=== PATIENT | male | born 1965 | race Caucasian/White ===

== ENCOUNTER 2016-10-31 18:46 | Emergency (ER) | payer OTHER ==
[~2016-10-31] VITALS: Ht 175.3 cm; Wt 125.8 kg
[2016-10-31 18:52] VITALS: TEMP 36.8; Ht 175.3 cm; Wt 125.8 kg
[2016-10-31] MEDS ORDERED: SODIUM CHLORIDE 0.9% 1000ML 1,000 ML IV STA (19:18)
--- NOTE | 2016-10-31 19:26 | EMERGENCY ROOM VISIT NOTE ---
History Report prepared by Lisa: Yesica Kitchen Under the Supervision of: Dr. Glory Dickey M.D. First contact with patient: 18:57 Chief Complaint: ABDOMINAL PAIN Stated Complaint: LOWER ABDOMINAL PAIN,CT/LABS CONFIRMED APPENDICITI Nursing Triage Summary: patient reports evaluation at [facility] for lower quadrant abdominal pain and lab work/ct showed acute appy, patient refused treatment at that facility, states "they didnt sent me here, I just didnt want to stay there." History of Present Illness The patient is a 51 year old male who presents to the Emergency Room with complaints of worsening abdominal pain for the past 3 days. His pain started gradually and he says he felt "gassy." Yesterday his pain became worse. Today he went to his PCP and had blood work and an outpatient CT scan at [facility]. He was called this evening and told that he had acute appendicitis. He was advised to return to the hospital. The patient came to [facility] instead. He is complaining of pain in the RLQ. He rates his pain as a 3/10 in severity. The patient denies fevers, nausea, vomiting, diarrhea, and urinary symptoms. Source of History: patient Onset: 3 days ago Position: abdomen (RLQ) Symptom Intensity: 3/10 Quality: other (gassy) Timing: worsening Associated Symptoms: No diarrhea, No fevers, No nausea, No urinary symptoms , No vomiting Review of Systems See HPI for pertinent positives & negatives. A total of 10 systems reviewed and were otherwise negative. Past Medical & Surgical Medical Problems: (1) No significant active problems Family History No pertinent history stated. Social History Smoking Status: Never Smoker Marital Status: Housing Status: lives with family Current/Historical Medications No Active Prescriptions or Reported Meds Allergies Coded Allergies: No Known Allergies (Unverified , 10/31/16) Physical Exam Vital Signs Date Time Temp Pulse Resp B/P Pulse Ox O2 Delivery O2 Flow Rate FiO2 10/31/16 20:50 71 20 116/61 100 Room Air 10/31/16 20:37 69 10/31/16 18:52 36.8 83 18 150/95 96 Room Air Physical Exam Vital signs reviewed. General: Well-appearing 51 year old male, in no significant distress. HEENT: No scleral icterus, PERRLA, neck supple. Atraumatic. Cardiovascular: Regular rate and rhythm, no extra sounds. Pulmonary: Clear to auscultation bilaterally, normal work of breathing. Abdomen: Soft, mild lower abdominal tenderness, no rebound or guarding, nondistended, positive bowel sounds. Musculoskeletal: Atraumatic, no peripheral edema. Neurologic: Patient awake alert and oriented x 3, full strength in all 4 extremities. Cranial nerves 2 through 12 grossly intact. Skin: Warm, dry, no rash Medical Decision & Procedures ER Provider Diagnostic Interpretation: Radiology results as stated below per my review and radiologist interpretation: CHEST ONE VIEW PORTABLE CLINICAL HISTORY: appy COMPARISON STUDY: No previous studies for comparison. FINDINGS: The bones soft tissues and hemidiaphragms are normal. The cardiomediastinal silhouette is normal. The lungs are clear. The pulmonary vasculature is normal. IMPRESSION: Negative chest. Electronically signed by: Nic Baron M.D. 10/31/2016 8:01 PM Dictated Date/Time: 10/31/2016 8:00 PM Laboratory Results 10/31/16 20:08 Red Blood Count 4.69, Mean Corpuscular Volume 90.4, Mean Corpuscular Hemoglobin 32.4, Mean Corpuscular Hemoglobin Concent 35.8, Mean Platelet Volume 10.0, Neutrophils (%) (Auto) 56.8, Lymphocytes (%) (Auto) 31.2, Monocytes (%) (Auto) 9.8, Eosinophils (%) (Auto) 1.7, Basophils (%) (Auto) 0.4, Neutrophils # (Auto) 4.42, Lymphocytes # (Auto) 2.43, Monocytes # (Auto) 0.76, Eosinophils # (Auto) 0.13, Basophils # (Auto) 0.03 10/31/16 20:08 Test 10/31/16 20:08 White Blood Count 7.78 K/uL (4.8-10.8) Red Blood Count 4.69 M/uL (4.7-6.1) Hemoglobin 15.2 g/dL (14.0-18.0) Hematocrit 42.4 % (42-52) Mean Corpuscular Volume 90.4 fL (80-100) Mean Corpuscular Hemoglobin 32.4 pg (25-34) Mean Corpuscular Hemoglobin Concent 35.8 g/dl (32-36) Platelet Count 257 K/uL (130-400) Mean Platelet Volume 10.0 fL (7.4-10.4) Neutrophils (%) (Auto) 56.8 % Lymphocytes (%) (Auto) 31.2 % Monocytes (%) (Auto) 9.8 % Eosinophils (%) (Auto) 1.7 % Basophils (%) (Auto) 0.4 % Neutrophils # (Auto) 4.42 K/uL (1.4-6.5) Lymphocytes # (Auto) 2.43 K/uL (1.2-3.4) Monocytes # (Auto) 0.76 K/uL (0.11-0.59) Eosinophils # (Auto) 0.13 K/uL (0-0.5) Basophils # (Auto) 0.03 K/uL (0-0.2) RDW Standard Deviation 42.5 fL (36.4-46.3) RDW Coefficient of Variation 13.0 % (11.5-14.5) Immature Granulocyte % (Auto) 0.1 % Immature Granulocyte # (Auto) 0.01 K/uL (0.00-0.02) Anion Gap 6.0 mmol/L (3-11) Est Creatinine Clear Calc Drug Dose 136.3 ml/min Estimated GFR () 118.0 Estimated GFR (Non- 101.8 BUN/Creatinine Ratio 11.6 (10-20) Calcium Level 8.8 mg/dl (8.5-10.1) Total Bilirubin 0.6 mg/dl (0.2-1) Direct Bilirubin 0.1 mg/dl (0-0.2) Aspartate Amino Transf (AST/SGOT) 16 U/L (15-37) Alanine Aminotransferase (ALT/SGPT) 40 U/L (12-78) Alkaline Phosphatase 72 U/L (45-117) Total Protein 7.2 gm/dl (6.4-8.2) Albumin 3.6 gm/dl (3.4-5.0) Laboratory results per my review. Medications Administered Medications (Trade) Dose Ordered Sig/Remedios Route Start Time Stop Time Status Last Admin Dose Admin Sodium Chloride (Nss 1000ml) 1,000 ml @ 200 mls/hr Q5H STAT IV 10/31/16 19:18 10/31/16 21:43 DC 10/31/16 19:43 200 MLS/HR ED Course 1857: Past medical records reviewed. The patient was evaluated in room B12B. A complete history and physical examination was performed. 1917: NSS 1000 ml @ 200 mls/hr IV 2049: I reassessed the patient at this time. He is feeling better and resting comfortably. The patient's CT results from earlier today were obtained. I discussed the results and treatment plan with the patient. I answered all pertaining questions that he had. He expressed understanding and verbalized agreement. The patient will be discharged home. Medical Decision Differential diagnosis: Etiologies such as appendicitis, diverticulitis, PUD, biliary pathology, UTI, pancreatitis, obstruction, mesenteric ischemia, aortic pathology, infections, inflammatory bowel disease, renal colic, as well as others were entertained. This patient was evaluated and appeared to be in no significant distress. Physical examination reveals mild lower abdominal tenderness. CT scan results were reviewed from the outside facility. The radiologist has read the scan as an epiploic appendagitis. CT scan has positively identify the appendix and states it is normal. Patient's laboratory work reveals a normal white blood cell count. He and his family were informed of the findings. He was given IV Toradol and was feeling improved after IV hydration. He was discharged with instructions to use ibuprofen as needed for pain. He will follow-up with his physician this week for reevaluation and return to the ER for worsening of symptoms or any medical concerns. Impression Primary Impression: Epiploic appendagitis Scribe Attestation The scribe's documentation has been prepared under my direction and personally reviewed by me in its entirety. I confirm that the note above accurately reflects all work, treatment, procedures, and medical decision making performed by me. Departure Information Dispostion Home / Self-Care Prescriptions No Active Prescriptions or Reported Meds Referrals Iban Ventura D.O. (PCP) Forms Call Back Authorization, HOME CARE DOCUMENTATION FORM, IMPORTANT VISIT INFORMATION Patient Instructions My [facility] Additional Instructions Diagnosis: Epiploic appendagitis Ibuprofen 600 mg every 6 hours as needed for pain with food. Drink plenty of clear fluids. Follow-up with your physician in one to 2 days for reevaluation Return to the emergency department for worsening of symptoms or any medical concerns.
--- NOTE | 2016-10-31 20:02 | DIAGNOSTIC IMAGING REPORT ---
CHEST ONE VIEW PORTABLE CLINICAL HISTORY: appy COMPARISON STUDY: No previous studies for comparison. FINDINGS: The bones soft tissues and hemidiaphragms are normal. The cardiomediastinal silhouette is normal. The lungs are clear. The pulmonary vasculature is normal. IMPRESSION: Negative chest. Electronically signed by: Nic Baron M.D. 10/31/2016 8:01 PM Dictated Date/Time: 10/31/2016 8:00 PM
[2016-10-31 20:22] LABS: BASO % 0.4 %; BASO ABS # 0.03 K/uL (0-0.2); COMPLETE YES; EOS % 1.7 %; HEMATOCRIT 42.4 % (42-52); IG% 0.1 %; LYMPH % 31.2 %; LYMPH ABS # 2.43 K/uL (1.2-3.4); MEAN CELL VOLUME 90.4 fL (80-100); MEAN CORPUSCULAR HEMOGLOBIN 32.4 pg (25-34); MEAN CORPUSCULAR HGB CONC 35.8 g/dl (32-36); MONO % 9.8 %; NEUT % 56.8 %; PLATELET COUNT 257 K/uL (130-400); RED BLOOD COUNT 4.69 M/uL (4.7-6.1); WHITE BLOOD COUNT 7.78 K/uL (4.8-10.8)
[2016-10-31 20:38] LABS: BUN/CREATININE RATIO 11.6 (10-20); CALCIUM 8.8 mg/dl (8.5-10.1); CREATININE 0.86 mg/dl (0.60-1.40); POTASSIUM 3.9 mmol/L (3.5-5.1)
[2016-10-31 20:50] VITALS: BP 116/61; PULSE 71; O2SAT 100
== END 2016-10-31 21:20 | disposition still patient (30) ==
LOC: C.EDB 18:50
DX: K63.89 Other specified diseases of intestine (principal); Q43.8 Other specified congenital malformations of intestine